=== PATIENT | female | born 1970 | race African-American/Black ===

== ENCOUNTER 2016-08-25 09:30 | Emergency (ER) | payer OTHER ==
[~2016-08-25] VITALS: Ht 149.9 cm; Wt 40.8 kg
[2016-08-25 09:44] VITALS: BP 109/70
--- NOTE | 2016-08-25 10:55 | ED ANKLE/FOOT INJURY COMPLAINT ---
History of Present Illness General Chief Complaint: Foot or Ankle Injury Stated Complaint: LEFT FOOT PIAN NO INJURY Source: patient, old records Exam Limitations: no limitations Vital Signs & Intake/Output Vital Signs & Intake/Output Vital Signs Date Time Temp Pulse Resp B/P Pulse O2 O2 Flow FiO2 Ox Delivery Rate 08/25 0944 98.3 82 20 109/70 98 Room Air Allergies Coded Allergies: No Known Allergies (08/25/16) Reconcile Medications No Known Home Medications Triage Note: TRIAGE: PT TO ER C/C PAIN TO L FOOT X 2 DAYS, WORSE AT NIGHT, BURNING/THROBBING IN NATURE, CONSTANT SINCE ONSET. HAS NOT TRIED ANY OTC MEDICATIONS FOR SAME. NO KNOWN INJURY. REFUSES OFFERED PAIN MEDICATION AT TRIAGE. Triage Nurses Notes Reviewed? yes Occurred: yesterday Duration: day(s): (2), constant Timing: recent history Severity: moderate Severity Numbers: 6 Pain/Injury Location: Left: Foot. Method of Injury: unknown Modifying Factors: Worsens With: other (PALPATION). Associated Symptoms: none HPI: 46-year-old female presents emergency room complaining of 2 day history of atraumatic left dorsal foot pain. The patient denies any known injury or trauma are states that it was intermittently throbbing last night. She has not taken anything for her symptoms since it began our states this morning and has been improved. She denies any ankle pain there is been no recent injury or trauma no modifying factors otherwise other than palpation making worse. No redness warmth TRIAGE: PT TO ER C/C PAIN TO L FOOT X 2 DAYS, WORSE AT NIGHT, BURNING/THROBBING IN NATURE, CONSTANT SINCE ONSET. HAS NOT TRIED ANY OTC MEDICATIONS FOR SAME. NO KNOWN INJURY. REFUSES OFFERED PAIN MEDICATION AT TRIAGE. Past History Travel History Traveled to [place] past 21 day No Medical History Any Pertinent Medical History? none Neurological: NONE EENT: NONE Cardiovascular: NONE Respiratory: NONE Gastrointestinal: NONE Hepatic: NONE Renal: NONE Musculoskeletal: NONE Psychiatric: NONE Endocrine: NONE Blood Disorders: NONE Cancer(s): NONE HOME LIGHTING ADVISER/Reproductive: NONE Surgical History Surgical History: none Psychosocial History Who do you live with Patient/Self What is your primary language Greek Tobacco Use: Never used ETOH Use: occasional use Illicit Drug Use: marijuana Family History Hx Contributory? No Review of Systems Review of Systems Constitutional: Reports: see HPI. All Other Systems: Reviewed and Negative Comments Review of systems: See HPI, All other systems negative. Constitutional, no chills no fever, no malaise HEENT: no sore throat no congestion Cardiovascular: No chest pain , no palpitation Skin, no rashes, no change in skin Respiratory: No dyspnea no cough no sputum GI: No nausea no vomiting, no diarrhea : No dysuria Muscle skeletal: No joint pain, no back pain, no neck pain, Neurologic: No numbness no headache Psych: No stress . Heme/endocrine: No bruising no bleeding Immunology: No lymphadenopathy Physical Exam Physical Exam General Appearance: well developed/nourished, alert, awake Leg/Knee/Thigh Left: normal range of motion, normal inspection Comments: Well-developed well-nourished patient in no apparent distress. HEENT: Atraumatic, extraocular motion intact Neck: Supple, FROM Back: FROM Respiratory: No respiratory distress. Patient speaking in full complete sentences. Breath sounds clear to auscultation bilaterally: NO W/R/R Upper Extremities: full range of motion Hip/Pelvis: Atraumatic/Stable. FROM. Knee: Atraumatic/stable. FROM. No joint swelling, no effusion. No laxity. No pain with ROM Leg: Atraumatic. Nontender. No edema, 5 out of 5 strength in the lower extremity, normal dorsiflexion of great toe bilaterally, gross sensation is intact, Ankle/Foot: Atraumatic/stable. Tender to palpation over the dorsal aspect of the medial left foot, there is no overlying erythema induration fluctuance no swelling no ecchymosis Skin intact. FROM. No swelling, no effusion. No laxity on exam Pulses: Normal/equal DP/PT pulses bilaterally. Brisk cap refill Neuro: Alert and oriented x3 Skin: Warm & dry;No appreciable rash on exposed skin Psych: Mood affect normal, normal memory normal judgment. Progress Differential Diagnosis: DVT, cellulitis, septic arthritis, gout, fracture, dislocation, sprain, contusion, TENDONITIS Plan of Care: There is been no recent injury or trauma I do not believe imaging is required which the patient is agreement with. I had an extensive conversation regarding need for close follow up with their primary care physician this week as well as return precautions. I answered all of their questions, they feel comfortable with the plan and follow-up care. Departure Departure Time of Disposition: 1112 Disposition: HOME OR SELF CARE Condition: Stable Clinical Impression Primary Impression: Tendonitis Referrals: RADHA PAYTON,STELLA Hatfield (PCP/Family) Additional Instructions: Rest ice and ibuprofen 600 mg every 8 hours, Tylenol every 8 hours as needed. As discussed procedures or shoes with a good insert, return anytime sooner with any concerns Departure Forms: Customer Survey General Discharge Information Prescriptions: Current Visit Scripts No Known Home Medications
== END 2016-08-25 11:24 ==
LOC: ERH 09:30
DX: M77.9 Enthesopathy, unspecified (principal)